=== PATIENT | female | born 1955 | race American Indian/Alaskan Native ===

== ENCOUNTER 2016-04-01 13:31 | Emergency (ER) | payer SELFPAY ==
--- NOTE | 2016-04-03 21:16 | ED Elopement Review ---
ED Pt Elopement review - Call Back decision Pt Call Back Decision: No action required
== END 2016-04-01 13:39 | disposition left against medical advice (07) ==
LOC: ED 13:31
DX: R06.00 Dyspnea, unspecified (principal); Z53.21 Procedure and treatment not carried out due to patient leaving prior to being seen by health care provider

== ENCOUNTER 2016-04-01 14:36 | Emergency (ER) | payer SELFPAY ==
--- NOTE | 2016-04-01 15:10 | Emergency Department Report ---
Chief Complaint: Dyspnea/Respdistress Stated Complaint: HARVINDER Time Seen by Provider: 04/01/16 15:04 - HPI History of Present Illness: 60-year-old female presents to the with difficulty in breathing. Patient states that she has been having trouble with her portable oxygen. Patient was given Solu-Medrol 125 mg by EMS and reported temporary symptomatic relief. Denies fever, chills, nausea, vomiting, chest pain, shortness of breath. - ROS Review of Systems: Per HPI - Exam Vital Signs: Vital Signs 04/01/16 14:47 Temperature 98.5 F Pulse Rate 119 H Respiratory 20 Rate Blood Pressure 122/86 O2 Sat by Pulse 95 Oximetry Physical Exam: General: 60-year-old female in mild to moderate distress. Well-developed, well- nourished. CV: Tachycardic. Regular rhythm. Lungs: Clear to auscultation bilaterally. MSE screening note: Focused history and physical exam performed. Due to findings the following was ordered: ED Disposition for MSE Condition: Stable
[2016-04-01 15:38] LABS: Hematocrit 39.1 % (30.3-42.9); Hemoglobin 12.7 gm/dl (10.1-14.3); Mean Corpuscular HGB Conc 32 % (30-34); Mean Corpuscular Hemoglobin 32 pg (28-32); Mean Corpuscular Volume 98 fl (79-97); Platelet Count 303 K/mm3 (140-440); Red Blood Count 3.98 M/mm3 (3.65-5.03); Red Cell Distribution Width 14.7 % (13.2-15.2); White Blood Count 13.8 K/mm3 (4.5-11.0)
--- NOTE | 2016-04-01 15:48 | XRay Report ---
CHEST 2 VIEWS INDICATION: Dyspnea. COMPARISON: 10/15/2015 FINDINGS: PA and lateral chest radiographs, 3 images, demonstrate normal cardiomediastinal silhouette. Mild aortic knob calcifications. Hyperexpanded lungs/COPD with now clear lung bases. No pleural effusions or CHF. Intact bones. CONCLUSION: No acute chest process with COPD and interval clearing of bibasilar atelectasis and tiny effusions, as described. Thank you for the opportunity to participate in this patient's care.
[2016-04-01 15:58] LABS: Blood Urea Nitrogen 11 mg/dL (7-17); Carbon Dioxide 27 mmol/L (22-30); Chloride 100.6 mmol/L (98-107); Glucose 137 mg/dL (65-100); Potassium 4.1 mmol/L (3.6-5.0); Sodium 140 mmol/L (137-145)
[2016-04-01 16:05] LABS: Anion Gap 17 mmol/L
[2016-04-01 16:51] LABS: Anisocytosis Few; Basophils % (Manual) 0 % (0.0-1.8); Blastocytes % (Manual) 0 %; Eosinophils % (Manual) 0 % (0.0-4.3)
[2016-04-01 16:52] LABS: Diff Status Complete
[2016-04-02] MEDS ORDERED: PROVENTIL IH ONE (06:39)
[2016-04-02] MEDS ORDERED: ATROVENT IH ONE (06:39)
--- NOTE | 2016-04-02 06:47 | Emergency Department Report ---
HPI - General Chief Complaint: Dyspnea/Respdistress Time Seen by Provider: 04/01/16 15:04 - HPI HPI: Room 26 The patient is a 60-year-old female presenting with a chief complaint of shortness of breath. The patient states she was a passenger in a car driving from [facility] visiting family when the battery on her oxygen concentrator . The patient states she began to feel short of breath, had a panic attack and diaphoresis. EMS was called and in the ED the patient was administered O2. The patient states her symptoms improved. The patient says she now just feels jittery from her long wait in the waiting room. Otherwise the patient states her shortness of breath has resolved. The patient states her O2 concentrator discharge and she also has a conventional O2 tank at her daughter' s home awaiting her Location: Lungs Duration: Times minutes until EMS arrived Quality: Shortness of breath Severity: Moderate Modifying factors: [see above] Context: [see above] Mode of transportation: [not driving] ED Past Medical Hx - Past Medical History Hx Hypertension: Yes Hx Asthma: Yes Hx COPD: Yes Additional medical history: tachycardia - Surgical History Past Surgical History?: Yes Additional Surgical History: - Family History Family history: no significant - Social History Smoking Status: Former Smoker (none 3 months) Substance Use Type: Alcohol (occasional) - Medications Home Medications: Home Medications Medication Instructions Recorded Confirmed Last Taken Type Beclomethasone Dipropionate [Qvar] 40 mcg INHALATION BID 10/16/15 04/02/1610/13 22:00 History Flonase 1 spray INTRANASAL DAILY 10/16/15 04/02/16 10/14/15 10:00 History KlonoPIN 1 mg PO BID 10/16/15 04/02/16 10/14/15 10:00 History PROzac 40 mg PO DAILY 10/16/15 04/02/16 10/14/15 History 40mg Singulair 10 mg PO DAILY 10/16/15 04/02/16 10/14/15 10:00 History Spiriva 1 dose INHALATION BID 10/16/15 04/02/16 10/14/15 22:00 History diphenhydrAMINE [Benadryl CAP] 50 mg PO QHS 10/16/15 04/02/16 10/14/15 22:00 History 1 ALBUTEROL Inhaler [Proair] 2 puff IH QID PRN #1 inhalation 04/02/16 Unknown Rx Losartan [Cozaar] 25 mg PO QDAY 04/02/16 04/02/16 Unknown History Prednisone [predniSONE 10 mg 10 mg PO .TAPER #1 tab.ds.pk 04/02/16 Unknown Rx (6-Day Pack, 21 Tabs)] amLODIPine [Norvasc] 10 mg PO DAILY 04/02/16 04/02/16 Unknown History ED Review of Systems ROS: Stated complaint: HARVINDER Other details as noted in HPI Comment: All other systems reviewed and negative Constitutional: denies: chills, fever Eyes: denies: eye pain, eye discharge, vision change ENT: denies: ear pain, throat pain Respiratory: shortness of breath Cardiovascular: denies: chest pain, palpitations Endocrine: no symptoms reported Gastrointestinal: denies: abdominal pain, nausea, diarrhea Genitourinary: denies: urgency, dysuria, discharge Musculoskeletal: denies: back pain, joint swelling, arthralgia Skin: denies: rash, lesions Neurological: denies: headache, weakness, paresthesias Psychiatric: anxiety Hematological/Lymphatic: denies: easy bleeding, easy bruising Physical Exam - Physical Exam Vital Signs: Vital Signs 04/01/16 04/02/16 04/02/16 14:47 04:08 04:09 Temperature 98.5 F 98.3 F Pulse Rate 119 H 90 Respiratory 20 18 17 Rate Blood Pressure 122/86 Blood Pressure 128/90 [Left] O2 Sat by Pulse 95 100 100 Oximetry Physical Exam: GENERAL: The patient is well-developed well-nourished male sitting on stretcher using cell phone not appearing to be in acute distress. [] HEENT: Normocephalic. Atraumatic. Extraocular motions are intact. Patient has moist mucous membranes. NECK: Supple. Trachea midline CHEST/LUNGS: Trace occasional expiratory wheezing. There is no respiratory distress noted. HEART/CARDIOVASCULAR: Regular. There is no tachycardia. There is no gallop rub or murmur. ABDOMEN: Abdomen is soft, nontender. Patient has normal bowel sounds. There is no abdominal distention. SKIN: There is no rash. There is no diaphoresis. NEURO: The patient is awake, alert, and oriented. The patient is cooperative. The patient has normal speech MUSCULOSKELETAL: There is no evidence of acute injury. ED Course Vital Signs 04/01/16 04/02/16 04/02/16 14:47 04:08 04:09 Temperature 98.5 F 98.3 F Pulse Rate 119 H 90 Respiratory 20 18 17 Rate Blood Pressure 122/86 Blood Pressure 128/90 [Left] O2 Sat by Pulse 95 100 100 Oximetry ED Medical Decision Making - Lab Data Result diagrams: 04/01/16 15:20 04/01/16 15:20 Laboratory Tests 04/01/16 04/01/16 04/01/16 15:20 15:20 15:20 WBC 13.8 H RBC 3.98 Hgb 12.7 Hct 39.1 MCV 98 H MCH 32 MCHC 32 RDW 14.7 Plt Count 303 Add Manual Diff Complete Total Counted 100 Seg Neutrophils % Street Car [employer]ic Seg Neuts % (Manual) 96.0 H Band Neutrophils % 0 Lymphocytes % (Manual) 2.0 L Reactive Lymphs % (Man) 0 Monocytes % (Manual) 2.0 Eosinophils % (Manual) 0 Basophils % (Manual) 0 Metamyelocytes % 0 Myelocytes % 0 Promyelocytes % 0 Blast Cells % 0 Nucleated RBC % Not Reportable Seg Neutrophils # Man 13.2 H Band Neutrophils # 0.0 Lymphocytes # (Manual) 0.3 L Abs React Lymphs (Man) 0.0 Monocytes # (Manual) 0.3 Eosinophils # (Manual) 0.0 Basophils # (Manual) 0.0 Metamyelocytes # 0.0 Myelocytes # 0.0 Promyelocytes # 0.0 Blast Cells # 0.0 WBC Morphology Not Reportable Hypersegmented Neuts Not Reportable Hyposegmented Neuts Not Reportable Hypogranular Neuts Not Reportable Smudge Cells Not Reportable Toxic Granulation Not Reportable Toxic Vacuolation Not Reportable Dohle Bodies Not Reportable Pelger-Huet Anomaly Not Reportable Ryder Rods Not Reportable Platelet Estimate Appears normal Clumped Platelets Not Reportable Plt Clumps, EDTA Not Reportable Large Platelets Not Reportable Giant Platelets Not Reportable Platelet Satelliting Not Reportable Plt Morphology Comment Not Reportable RBC Morphology Not Reportable Dimorphic RBCs Not Reportable Polychromasia Not Reportable Hypochromasia Not Reportable Poikilocytosis Not Reportable Anisocytosis Few Microcytosis Not Reportable Macrocytosis Not Reportable Spherocytes Not Reportable Pappenheimer Bodies Not Reportable Sickle Cells Not Reportable Target Cells Not Reportable Tear Drop Cells Not Reportable Ovalocytes Not Reportable Helmet Cells Not Reportable [place] Bodies Not Reportable [place] Rings Not Reportable Beth Cells Not Reportable Bite Cells Not Reportable Crenated Cell Not Reportable Elliptocytes Not Reportable Acanthocytes (Spur) Not Reportable Rouleaux Not Reportable Hemoglobin C Crystals Not Reportable Schistocytes Not Reportable Malaria parasites Not Reportable Raul Bodies Not Reportable Hem Pathologist Commnt No Sodium 140 Potassium 4.1 Chloride 100.6 Carbon Dioxide 27 Anion Gap 17 BUN 11 Creatinine 0.5 L Estimated GFR > 60 BUN/Creatinine Ratio 22.00 Glucose 137 H Calcium 9.0 Troponin T < 0.010 - EKG Data -: EKG Interpreted by Me EKG shows normal: sinus rhythm Rate: tachycardia (111 bpm) - EKG Data When compared to previous EKG there are: no significant change Interpretation: unchanged when compared t (10/15/2015) - Radiology Data Radiology results: image reviewed (chest x-ray) interpreted by me: Chest x-ray-no focal infiltrates, no pneumothorax - Differential Diagnosis COPD exacerbation, O2 dependence Critical care attestation.: If time is entered above; I have spent that time in minutes in the direct care of this critically ill patient, excluding procedure time. ED Disposition Clinical Impression: COPD exacerbation, Dependence on supplemental oxygen Disposition: DISCHARGED TO HOME OR SELFCARE Is pt being admited?: No Does the pt Need Aspirin: No Condition: Stable Instructions: Chronic Obstructive Pulmonary Disease (ED) Additional Instructions: Return to the emergency department immediately should you develop worsening symptoms, fever, inability to tolerate food or liquid or any other concerns. Prescriptions: ALBUTEROL Inhaler [Proair] 2 puff IH QID PRN #1 inhalation PRN Reason: Shortness Of Breath Prednisone [predniSONE 10 mg (6-Day Pack, 21 Tabs)] 10 mg PO .TAPER #1 tab.ds.pk Referrals: PRIMARY CARE, [Primary Care Provider] - 3-5 Days Time of Disposition: 06:54
[2016-04-02] MEDS ORDERED: PROzac PO ONE (06:59)
[2016-04-02 07:55] VITALS: BP 136/97
== END 2016-04-02 08:26 | disposition home or self-care (01) ==
LOC: ED 14:36
DX: J44.1 Chronic obstructive pulmonary disease with (acute) exacerbation (principal); F19.20 Other psychoactive substance dependence, uncomplicated; I10 Essential (primary) hypertension; J45.909 Unspecified asthma, uncomplicated; Z87.891 Personal history of nicotine dependence
CPT/HCPCS: 36415; 71020; 80048; 84484; 85007; 85025; 93005; 93010; 94644; 96372; 99284; J2930